=== PATIENT | female | born 1995 | race Caucasian/White ===

== ENCOUNTER 2018-04-03 09:02 | Day surgery (SDC) | payer OTHER ==
[~2018-04-03 09:02] MED LIST: ROCURONIUM 50 MG INJ
[2018-04-03] MEDS ORDERED: CEFAZOLIN 2 GM/50 ML (PMX) 50 ML IVPB (10:00)
[2018-04-03] MEDS ORDERED: SOD CHLORIDE 0.9% 1,000 ML IV (10:00)
[2018-04-03 10:23] LABS: ADD MAN DIFF? NO
[2018-04-03 10:25] LABS: WHITE BLOOD COUNT 5.7 10^3/ul (4.8-10.8)
[2018-04-03 10:25] LABS: BASOPHILS % 0.5 % (0.0-2.0); EOSINOPHILS # 0.2 10^3/ul (0.0-0.5); EOSINOPHILS % 3.8 % (0.0-7.0); HEMATOCRIT 38.5 % (37.0-47.0); HEMOGLOBIN 12.8 g/dl (12.0-16.0); LYMPHOCYTES # 2.8 10^3/ul (0.8-2.9); LYMPHOCYTES % 48.5 % (15.0-51.0); MEAN CORPUSCULAR HEMOGLOBIN 29.4 pg (29.0-33.0); MEAN CORPUSCULAR HGB CONC 33.2 g/dl (32.0-37.0); MEAN CORPUSCULAR VOLUME 88.3 fl (82.0-101.0); MONOCYTE # 0.4 10^3/ul (0.3-0.9); MONOCYTES % 7.2 % (0.0-11.0); NEUTROPHIL # 2.3 10^3/ul (1.6-7.5); NEUTROPHILS % 39.8 % (39.0-77.0); PLATELET COUNT 249 10^3/UL (140-415); RED BLOOD COUNT 4.36 10^6/ul (4.20-5.40); RED CELL DISTRIBUTION WIDTH 12.5 % (11.5-14.5)
[2018-04-03 10:48] LABS: INR 0.99; PROTIME 13.2 Sec (11.9-14.9)
[2018-04-03 10:49] LABS: PARTIAL THROMBOPLASTIN TIME 29.8 Sec (25.0-35.0)
[2018-04-03 11:03] LABS: ALANINE AMINOTRANSFERASE 42 IU/L (13-69); ALBUMIN 4.2 g/dl (3.3-4.9); ALBUMIN/GLOBULIN RATIO 1.13; ALKALINE PHOSPHATASE 70 IU/L (42-121); ANION GAP 12 (8-16); ASPARTATE AMINO TRANSFERASE 30 IU/L (15-46); BILIRUBIN,INDIRECT 0.6 mg/dl (0-1.1); BILIRUBIN,TOTAL 0.6 mg/dl (0.2-1.3); BLOOD UREA NITROGEN 10 mg/dl (7-20); CALCIUM 9.3 mg/dl (8.4-10.2); CARBON DIOXIDE 26 mmol/L (21-31); CHLORIDE 110 mmol/L (97-110); CREATININE 0.61 mg/dl (0.44-1.00); GLUCOSE 90 mg/dl (70-220); POTASSIUM 3.9 mmol/L (3.5-5.1); SODIUM 144 mmol/L (135-144); TOTAL PROTEIN 7.9 g/dl (6.1-8.1)
[2018-04-03] MEDS ORDERED: MIDAZOLAM 1 MG/ML 2 ML INJ (12:17)
[2018-04-03] MEDS: BUPIVACAINE 0.25%/EPI (MDV) 50 ML VIAL INJ (13:41)
[2018-04-03] MEDS ORDERED: ONDANSETRON 4 MG INJ (13:48)
[2018-04-03] MEDS ORDERED: PROPOFOL 20 ML (13:50)
[2018-04-03] MEDS ORDERED: NEOSTIGMINE 3 MG/3 ML SYRINGE (13:50)
[2018-04-03] MEDS ORDERED: CEFAZOLIN 1 GM INJ (13:50)
[2018-04-03] MEDS ORDERED: GLYCOPYRROLATE 1 MG INJ (13:50)
[2018-04-03] MEDS ORDERED: LIDOCAINE 2% (SDV) 5 ML INJ (13:50)
[2018-04-03] MEDS ORDERED: KETOROLAC 30 MG INJ (13:57)
[2018-04-03] MEDS ORDERED: HYDROCODONE/APAP (5/325) TAB PO (14:00)
[2018-04-03] MEDS ORDERED: KETOROLAC 30 MG INJ IV (14:00)
[2018-04-03] MEDS ORDERED: morphine 2 MG INJ IV (14:00)
[2018-04-03] MEDS ORDERED: ONDANSETRON 4 MG INJ IV (14:00)
[2018-04-03] MEDS ORDERED: HYDROmorphONE 1 MG/5 ML IV SYRINGE IV ×2 (14:09→14:30)
[2018-04-03] MEDS: HYDROmorphONE 1 MG/5 ML IV SYRINGE IV (14:20)
[2018-04-03] MEDS: ONDANSETRON 4 MG INJ IV (14:24)
[2018-04-03] MEDS: MEPERIDINE 25 MG INJ IV (14:25)
[2018-04-03] MEDS ORDERED: METOCLOPRAMIDE 10 MG INJ IV (14:30)
[2018-04-03] MEDS: FENTAnyl 50 MCG/ML VIAL IV (14:34)
[2018-04-03] MEDS: DIPHENHYDRAMINE 50 MG INJ IV (14:37)
[2018-04-03] MEDS: HYDROCODONE/APAP (5/325) TAB PO (15:38)
== END 2018-04-04 10:01 | disposition home or self-care (01) ==
LOC: SDS 09:02
DX: K81.1 Chronic cholecystitis (principal); E66.9 Obesity, unspecified; Z68.36 Body mass index [BMI] 36.0-36.9, adult
CPT/HCPCS: 47562; 80053; 84703; 85025; 85610; 85730; 88304

== ENCOUNTER 2018-04-05 10:34 | Emergency (ER) | payer OTHER ==
[2018-04-05] MEDS: SOD CHLORIDE 0.9% 1,000 ML IV (11:08)
[2018-04-05] MEDS: ONDANSETRON 4 MG INJ IV (11:08)
[2018-04-05] MEDS: morphine 4 MG/ML VIAL IV ×2 (11:09→14:33)
[2018-04-05 11:29] LABS: ADD MAN DIFF? NO
[2018-04-05 11:31] LABS: WHITE BLOOD COUNT 6.8 10^3/ul (4.8-10.8)
[2018-04-05 11:31] LABS: BASOPHILS % 0.4 % (0.0-2.0); EOSINOPHILS # 0.1 10^3/ul (0.0-0.5); EOSINOPHILS % 1.6 % (0.0-7.0); HEMATOCRIT 36.9 % (37.0-47.0); HEMOGLOBIN 12.4 g/dl (12.0-16.0); LYMPHOCYTES # 1.9 10^3/ul (0.8-2.9); LYMPHOCYTES % 28.4 % (15.0-51.0); MEAN CORPUSCULAR HEMOGLOBIN 29.9 pg (29.0-33.0); MEAN CORPUSCULAR HGB CONC 33.6 g/dl (32.0-37.0); MEAN CORPUSCULAR VOLUME 88.9 fl (82.0-101.0); MEAN PLATELET VOLUME 8.9 fl (7.4-10.4); MONOCYTE # 0.4 10^3/ul (0.3-0.9); MONOCYTES % 5.3 % (0.0-11.0); NEUTROPHIL # 4.4 10^3/ul (1.6-7.5); NEUTROPHILS % 63.9 % (39.0-77.0); PLATELET COUNT 233 10^3/UL (140-415); RED BLOOD COUNT 4.15 10^6/ul (4.20-5.40); RED CELL DISTRIBUTION WIDTH 12.5 % (11.5-14.5)
[2018-04-05 11:52] LABS: ALANINE AMINOTRANSFERASE 42 IU/L (13-69); ALBUMIN/GLOBULIN RATIO 1.08; ALKALINE PHOSPHATASE 66 IU/L (42-121); ANION GAP 12 (8-16); ASPARTATE AMINO TRANSFERASE 32 IU/L (15-46); BILIRUBIN,INDIRECT 0.5 mg/dl (0-1.1); BILIRUBIN,TOTAL 0.5 mg/dl (0.2-1.3); BLOOD UREA NITROGEN 7 mg/dl (7-20); CALCIUM 9.1 mg/dl (8.4-10.2); CARBON DIOXIDE 28 mmol/L (21-31); CHLORIDE 106 mmol/L (97-110); CREATININE 0.58 mg/dl (0.44-1.00); GLUCOSE 94 mg/dl (70-220); LIPASE 47 U/L (23-300); POTASSIUM 3.9 mmol/L (3.5-5.1); SODIUM 142 mmol/L (135-144); TOTAL PROTEIN 7.7 g/dl (6.1-8.1)
[2018-04-05 12:22] LABS: ADD UMIC NO; UR ASCORBIC ACID NEGATIVE (NEGATIVE); UR BILIRUBIN (Dip) NEGATIVE (NEGATIVE); UR BLOOD (Dip) NEGATIVE (NEGATIVE); UR CLARITY CLEAR (CLEAR); UR COLOR YELLOW (YELLOW); UR GLUCOSE (Dip) NEGATIVE (NEGATIVE); UR KETONES (Dip) 1+ mg/dL (NEGATIVE); UR LEUKOCYTE ESTERASE (Dip) NEGATIVE Leu/ul (NEGATIVE); UR NITRITE (Dip) NEGATIVE (NEGATIVE); UR SPECIFIC GRAVITY (Dip) 1.012 (1.003-1.030); UR TOTAL PROTEIN (Dip) NEGATIVE (NEGATIVE); UR UROBILINOGEN (Dip) NEGATIVE (NEGATIVE)
[2018-04-05] MEDS: IOHEXOL 300MG/ML 150 ML BTL (13:11)
[2018-04-05] MEDS: SOD CHLORIDE 0.9% 100 ML (13:11)
[2018-04-05] MEDS: MAGNESIUM HYDROXIDE 30ML CUP PO (14:52)
== END 2018-04-05 15:01 | disposition home or self-care (01) ==
LOC: FTE 10:34
DX: G89.18 Other acute postprocedural pain (principal); R10.84 Generalized abdominal pain
CPT/HCPCS: 36415; 74177; 80053; 81003; 81025; 83690; 85025; 96374; 96375; 96376; 99285-25